=== PATIENT | male | born 1945 | race Caucasian/White ===

== ENCOUNTER 2017-01-28 07:04 | Day surgery (SDC) | payer OTHER ==
--- NOTE | ~2017-01-28 | EGD ---
EGD REPORT [facility] [address] [id number] NAME: ADAMA BERMUDEZ : [birth year] STATUS : REG [facility]#: [id number] AGE: 71 ADM/REG DATE : 01/28/17 MR#: [id number] REPORT SERV DATE: 01/28/17 DICTATED BY: HANANE SANDERS DATE: 01/28/17 REPORT STATUS : Draft TRANSCRIBED BY: [facility] DATE: 01/28/17 Endoscopy Center Patient Name: Adama Bermudez Date of : 1945 Attending MD: HANANE SANDERS MD Procedure Date No Time: 01/28/2017 Procedure: Colonoscopy Indications: Screening for colorectal malignant neoplasm Referring MD: ERROL RENE MD Medicines: as per anesthesia Complications: No immediate complications. Procedure: Pre-Anesthesia Assessment: - ASA Grade Assessment: III - A patient with severe systemic disease. After I obtained informed consent, the scope was passed under direct vision. Throughout the procedure, the patient's blood pressure, pulse, and oxygen saturations were monitored continuously. The PCF [id number] was introduced through the anus and advanced to the cecum, identified by appendiceal orifice and ileocecal valve. The colonoscopy was performed without difficulty. The patient tolerated the procedure well. The quality of the bowel preparation was adequate to identify polyps. Findings: The perianal and digital rectal examinations were normal. Internal hemorrhoids were found during endoscopy and were mild. Impression: - Internal hemorrhoids. Recommendation: - Continue present medications. Procedure Code(s): --- Professional --- 25941, Colonoscopy, flexible, proximal to splenic flexure; diagnostic, with or without collection of specimen(s) by brushing or washing, with or without colon decompression (separate procedure) Diagnosis Code(s): --- Professional --- K64.8, Other hemorrhoids Z12.11, Encounter for screening for malignant neoplasm of colon CPT copyright 2013 [employer]. All rights reserved. EGD REPORT [facility] [address] [facility] [facility] [place]. [address] NAME: ADAMA BERMUDEZ : [birth year] STATUS : REG [facility] PAT#: [id number] AGE: 71 ADM/REG DATE : 01/28/17 MR#: [id number] REPORT SERV DATE: 01/28/17 DICTATED BY: HANANE SANDERS. DATE: 01/28/17 REPORT STATUS : Draft TRANSCRIBED BY: [employer] DATE: 01/28/17 The codes documented in this report are preliminary and upon vice president investor relations review may be revised to meet current compliance requirements. HANANE SANDERS MD 01/28/2017 8:13 AM This report has been signed electronically. Number of Addenda: 0 Note Initiated On: 01/28/2017 7:49 AM Scope Withdrawal Time 0 hours 6 minutes 18 seconds [id number] [facility] [place] [id number]
[~2017-01-28 07:04] MED LIST: ACTOS45 PO; ALTACE10 MG PO; GLUCOV2.5 PO; HALF81 PO; NEXIUM40 PO; NORCO1 TA1 PO; PRAVACHOL80 MG PO; VITE PO; ZETIA PO; [UNRECOGNIZED DRUG - OTHER] PO
== END 2017-01-28 23:59 | disposition home or self-care (01) ==
LOC: DMU 07:04
PROVIDERS: Internal Medicine Gastroenterology
PROC: 0DJD8ZZ Inspection of Lower Intestinal Tract, Via Natural or Artificial Opening Endoscopic (ICD-10-PCS; principal; 2017-01-28 08:30)
DX: Z12.11 Encounter for screening for malignant neoplasm of colon (principal); K64.8 Other hemorrhoids; E11.9 Type 2 diabetes mellitus without complications; K21.9 Gastro-esophageal reflux disease without esophagitis; E78.00 Pure hypercholesterolemia, unspecified; I25.10 Atherosclerotic heart disease of native coronary artery without angina pectoris; M19.90 Unspecified osteoarthritis, unspecified site; Z90.49 Acquired absence of other specified parts of digestive tract; Z98.890 Other specified postprocedural states; Z88.8 Allergy status to other drugs, medicaments and biological substances; Z98.41 Cataract extraction status, right eye; Z95.1 Presence of aortocoronary bypass graft; Z98.42 Cataract extraction status, left eye
CPT/HCPCS: 82962